=== PATIENT | male | born 1990 | race Two or more races ===

== ENCOUNTER 2020-02-16 09:43 | Inpatient (IN) | payer OTHER ==
[~2020-02-16] VITALS: Ht 172.7 cm; Wt 81.3 kg
[2020-02-16] MEDS ORDERED: ONDANSETRON 2MG/ML, 2ML ONE ×2 (10:07→14:20)
[2020-02-16] MEDS ORDERED: HYDROmorphone 1 MG/ML, 1ML INJ ONE (10:07)
[2020-02-16] MEDS ORDERED: SODIUM CHLORIDE FLUSH 10ML SYR IVF ONE (10:30)
[2020-02-16] MEDS ORDERED: HYDROmorphone 2 MG/ML, 1ML IVPush PRN (10:30)
[2020-02-16] MEDS ORDERED: ONDANSETRON 2MG/ML, 2ML IVPush ONE (10:30)
[2020-02-16 10:34] LABS: MEAN CORPUSCULAR HEMOGLOBIN 27.8 pg (27.5-34.5); MEAN CORPUSCULAR HGB CONC 33.4 g/dL (33.2-36.2); MEAN CORPUSCULAR VOLUME 83.2 fL (81-97); MEAN PLATELET VOLUME 8.4 fL (7.4-10.4); PLATELET COUNT 267 x10^3/uL (130-400); RED BLOOD COUNT 5.45 x10^6/uL (4.38-5.82); RED CELL DISTRIBUTION WIDTH 13.4 % (9.4-14.8)
[2020-02-16 10:45] LABS: ALBUMIN 4.1 g/dL (3.4-5.0); ANION GAP 10 mmol/L (5-15); CALCIUM 9.4 mg/dL (8.5-10.1); CHLORIDE 101 mmol/L (98-107)
[2020-02-16 10:49] LABS: ALANINE AMINOTRANSFERASE 39 U/L (12-78); ALKALINE PHOSPHATASE 71 U/L (45-117); TOTAL PROTEIN 8.6 g/dL (6.4-8.2)
[2020-02-16 10:52] LABS: MD YES
[2020-02-16 10:53] LABS: BAND#(MANUAL) 0.84 x10^3/uL; BANDS%(MANUAL) 4 % (0-7); SEGS% (MANUAL) 81 % (42-75)
[2020-02-16 10:54] LABS: <PLATELET ESTIMATE> ADEQUATE; <PLT MORPHOLOGY> NORMAL PLT MORPH; <RBC MORPHOLOGY> NORMAL; LYMPHS% (MANUAL) 9 % (22-44); MONOS#(MANUAL) 1.27 x10^3/uL (0.3-2.7); MONOS% (MANUAL) 6 % (2-9); SEG#(MANUAL) 17.09 x10^3/uL (1.8-6.8)
--- NOTE | 2020-02-16 10:58 | NUR ---
PT ERESTING IN [facility]. AMBULATED TO BATHROOM AND UNABLE TO PROVIDE URINE SAMPLE. SEE MAR FOR INTERVETIONS. PT REPORTS PAIN IMRPOVMENT TO A 4/10
[2020-02-16] MEDS ORDERED: CEFTRIAXONE PMX 2GM/50ML 0 ML ONE (11:46)
[2020-02-16] MEDS ORDERED: OMNIPAQUE 350 MG/ML, 100ML BOTTLE ONE (11:48)
--- NOTE | 2020-02-16 11:56 | NUR ---
PT TBADM. MD BEDSIDE TO DISCUSS PLAN OF CARE WITH PT.
[2020-02-16] MEDS ORDERED: CEFOTETAN PMX 2GM/50ML 50 ML IV ONE (12:00)
[2020-02-16] MEDS ORDERED: SODIUM CHLORIDE 0.9% 1,000ML IVBOLUS ONE (12:00)
[2020-02-16] MEDS ORDERED: FENTANYL PF 100 MCG/2ML ONE (12:51)
[2020-02-16] MEDS ORDERED: MIDAZOLAM 1 MG/ML, 2ML ONE (12:51)
[2020-02-16] MEDS ORDERED: BUPIVACAINE/PF-EPI 0.5% 1:200K ONE (13:09)
[2020-02-16] MEDS ORDERED: CHLORHEXIDINE 15 ML UDC ONE (13:13)
[2020-02-16] MEDS ORDERED: ACETAMINOPHEN 325 MG TABLET PO PRN (13:30)
[2020-02-16] MEDS ORDERED: MEPERIDINE/PF 25MG/0.5ML IVPush PRN (13:30)
[2020-02-16] MEDS ORDERED: OXYcodone 5 MG/5 ML ORAL.SOL UDC PO PRN (13:30)
[2020-02-16] MEDS ORDERED: HYDROmorphone 1 MG/ML, 1ML INJ IVPush PRN (13:30)
[2020-02-16] MEDS ORDERED: LORazepam 2 MG/ML, 1ML IVPush PRN (13:30)
[2020-02-16] MEDS ORDERED: hydrALAzine 20 MG/ML, 1ML IV PRN (13:30)
[2020-02-16] MEDS ORDERED: PROMETHAZINE 25 MG/ML, 1ML IVPush PRN (13:30)
[2020-02-16] MEDS ORDERED: FENTANYL PF 100 MCG/2ML IV PRN (13:30)
[2020-02-16] MEDS ORDERED: CHLORHEXIDINE 15 ML UDC MM ONE (13:30)
[2020-02-16] MEDS ORDERED: LABETALOL 5MG/ML, 20ML IV PRN (13:30)
[2020-02-16] MEDS ORDERED: ALBUTEROL SULFATE 2.5 MG/3 ML NPPB PRN (13:30)
[2020-02-16] MEDS ORDERED: SUGAMMADEX 200 MG/2 ML IVPush ONE (13:36)
[2020-02-16] MEDS ORDERED: KETOROLAC 30 MG/1 ML ONE (13:36)
[2020-02-16] MEDS ORDERED: BUPIVACAINE/PF-EPI 0.5% 1:200K INFIL ONE (13:48)
[2020-02-16] MEDS ORDERED: SODIUM CHLORIDE FLUSH 10ML SYR IVF PRN (14:00)
[2020-02-16] MEDS ORDERED: DEXAMETHASONE 4 MG/ML, 1ML ONE (14:20)
[2020-02-16] MEDS ORDERED: NEOSTIGMINE 1 MG/ML, 10ML ONE (14:20)
[2020-02-16] MEDS ORDERED: GLYCOPYRROLATE 0.2MG/1ML, 5ML ONE (14:20)
[2020-02-16] MEDS ORDERED: PROPOFOL 10 MG/ML, 20ML ONE (14:20)
[2020-02-16] MEDS ORDERED: LIDOCAINE-MPF 2% ,5ML ONE (14:20)
[2020-02-16] MEDS ORDERED: SUCCINYLCHOLINE 20 MG/ML, 10ML ONE (14:20)
[2020-02-16] MEDS ORDERED: ROCURONIUM 10MG/ML,5ML ONE (14:20)
[2020-02-16 15:56] VITALS: BP 119/81
[2020-02-16] MEDS ORDERED: ONDANSETRON 2MG/ML, 2ML IV PRN (16:30)
[2020-02-16] MEDS ORDERED: ONDANSETRON ODT 4 MG PO PRN (16:30)
[2020-02-16] MEDS ORDERED: HYDROmorphone 1 MG/ML, 1ML INJ IV PRN ×2 (16:30)
[2020-02-16] MEDS: PIPERACILLIN/TAZO/PMX 4.5GM 100 ML IV SCH ×2 (17:39→23:24)
[2020-02-16] MEDS: SODIUM CHLORIDE 0.9% 1,000 ML IV SCH (17:39)
[2020-02-16 20:05] VITALS: BP 118/84
[2020-02-16] MEDS: ACETAMINOPHEN 325 MG TABLET PO PRN (22:00)
[2020-02-16] MEDS: OXYcodone IR 5MG TABLET PO PRN (22:00)
[2020-02-17 00:02] VITALS: BP 113/72
[2020-02-17] MEDS: SODIUM CHLORIDE 0.9% 1,000 ML IV SCH ×4 (02:30→23:47)
[2020-02-17 04:19] VITALS: BP 119/75
[2020-02-17] MEDS: PIPERACILLIN/TAZO/PMX 4.5GM 100 ML IV SCH ×4 (05:15→23:48)
[2020-02-17] MEDS: OXYcodone IR 5MG TABLET PO PRN ×4 (05:25→23:48)
[2020-02-17] MEDS: ACETAMINOPHEN 325 MG TABLET PO PRN ×3 (05:25→16:40)
[2020-02-17 05:42] LABS: MEAN CORPUSCULAR HGB CONC 32.9 g/dL (33.2-36.2); MEAN CORPUSCULAR VOLUME 85.2 fL (81-97); MEAN PLATELET VOLUME 7.9 fL (7.4-10.4); PLATELET COUNT 218 x10^3/uL (130-400); RED BLOOD COUNT 5.24 x10^6/uL (4.38-5.82); RED CELL DISTRIBUTION WIDTH 13.7 % (9.4-14.8)
[2020-02-17 05:52] LABS: ANION GAP 8 mmol/L (5-15); CALCIUM 9.4 mg/dL (8.5-10.1); CHLORIDE 109 mmol/L (98-107)
[2020-02-17 05:55] LABS: CREATININE 1.24 mg/dL (0.7-1.3)
[2020-02-17 06:28] LABS: MD YES
[2020-02-17 06:30] LABS: <RBC MORPHOLOGY> NORMAL; BAND#(MANUAL) 3.03 x10^3/uL; BANDS%(MANUAL) 15 % (0-7); LYMPH#(MANUAL) 3.64 x10^3/uL (1-3.4); LYMPHS% (MANUAL) 18 % (22-44); MONOS#(MANUAL) 1.01 x10^3/uL (0.3-2.7); MONOS% (MANUAL) 5 % (2-9); SEG#(MANUAL) 12.52 x10^3/uL (1.8-6.8); SEGS% (MANUAL) 62 % (42-75)
[2020-02-17 06:31] LABS: <PLATELET ESTIMATE> ADEQUATE; <PLT MORPHOLOGY> NORMAL PLT MORPH
[2020-02-17 07:40] VITALS: BP 92/63
[2020-02-17 13:30] VITALS: BP 108/72
[2020-02-17 19:08] VITALS: BP 111/72
[2020-02-18 00:33] VITALS: BP 126/82
[2020-02-18] MEDS: OXYcodone IR 5MG TABLET PO PRN ×3 (05:54→18:29)
[2020-02-18] MEDS: ACETAMINOPHEN 325 MG TABLET PO PRN ×3 (05:54→18:29)
[2020-02-18] MEDS: PIPERACILLIN/TAZO/PMX 4.5GM 100 ML IV SCH ×4 (05:55→23:30)
[2020-02-18 06:14] LABS: CHLORIDE 111 mmol/L (98-107)
[2020-02-18 06:25] LABS: BASOPHILS # (AUTO) 0.04 x10^3/uL (0-0.1); BASOPHILS % (AUTO) 0 % (0-1); EOSINOPHILS % (AUTO) 0 % (1-7); LYMPHOCYTES # (AUTO) 2.25 x10^3/uL (1-3.4); LYMPHOCYTES % (AUTO) 17 % (22-44); MD NO; MEAN CORPUSCULAR HEMOGLOBIN 27.7 pg (27.5-34.5); MEAN CORPUSCULAR HGB CONC 32.8 g/dL (33.2-36.2); MEAN CORPUSCULAR VOLUME 84.5 fL (81-97); MEAN PLATELET VOLUME 8.2 fL (7.4-10.4); MONOCYTES # (AUTO) 0.56 x10^3/uL (0.2-0.8); MONOCYTES % (AUTO) 4 % (2-9); NEUTROPHILS # (AUTO) 10.23 x10^3/uL (1.8-6.8); NEUTROPHILS % (AUTO) 78 % (42-75); PLATELET COUNT 204 x10^3/uL (130-400); RED BLOOD COUNT 4.17 x10^6/uL (4.38-5.82); RED CELL DISTRIBUTION WIDTH 14.2 % (9.4-14.8)
[2020-02-18 06:29] LABS: ANION GAP 7 mmol/L (5-15); CALCIUM 7.8 mg/dL (8.5-10.1); CREATININE 1.07 mg/dL (0.7-1.3)
[2020-02-18 07:45] VITALS: BP 103/67
[2020-02-18] MEDS: SODIUM CHLORIDE 0.9% 1,000 ML IV SCH (08:30)
[2020-02-18] MEDS: SODIUM CHLORIDE FLUSH 3ML SYRINGE IVF SCH ×2 (09:21→21:00)
[2020-02-18] MEDS: ENOXAPARIN 30 MG/0.3 ML SQ SCH ×2 (09:21→21:06)
[2020-02-18 13:58] VITALS: BP 106/68
[2020-02-18 19:30] VITALS: BP 125/75
[2020-02-19 02:00] VITALS: BP 144/84
[2020-02-19] MEDS: PIPERACILLIN/TAZO/PMX 4.5GM 100 ML IV SCH ×4 (05:50→22:49)
[2020-02-19] MEDS: OXYcodone IR 5MG TABLET PO PRN ×4 (06:00→22:59)
[2020-02-19 06:48] LABS: MEAN CORPUSCULAR HEMOGLOBIN 27.1 pg (27.5-34.5); MEAN CORPUSCULAR HGB CONC 32.6 g/dL (33.2-36.2); MEAN PLATELET VOLUME 8.2 fL (7.4-10.4); PLATELET COUNT 267 x10^3/uL (130-400); RED BLOOD COUNT 4.39 x10^6/uL (4.38-5.82); RED CELL DISTRIBUTION WIDTH 13.6 % (9.4-14.8)
[2020-02-19 06:51] LABS: CALCIUM 8.5 mg/dL (8.5-10.1); CHLORIDE 107 mmol/L (98-107)
[2020-02-19 06:55] LABS: ANION GAP 9 mmol/L (5-15); CREATININE 0.98 mg/dL (0.7-1.3)
[2020-02-19 07:18] LABS: BASOPHILS # (AUTO) 0.04 x10^3/uL (0-0.1); BASOPHILS % (AUTO) 0 % (0-1); EOSINOPHILS # (AUTO) 0.03 x10^3/uL (0-0.4); EOSINOPHILS % (AUTO) 0 % (1-7); LYMPHOCYTES # (AUTO) 2.51 x10^3/uL (1-3.4); LYMPHOCYTES % (AUTO) 21 % (22-44); MD SCAN; MONOCYTES # (AUTO) 0.78 x10^3/uL (0.2-0.8); MONOCYTES % (AUTO) 7 % (2-9); NEUTROPHILS # (AUTO) 8.38 x10^3/uL (1.8-6.8); NEUTROPHILS % (AUTO) 71 % (42-75)
[2020-02-19 07:49] VITALS: BP 126/78
[2020-02-19] MEDS: SODIUM CHLORIDE FLUSH 3ML SYRINGE IVF SCH ×2 (09:00→21:00)
[2020-02-19] MEDS: ENOXAPARIN 30 MG/0.3 ML SQ SCH ×2 (09:25→22:49)
[2020-02-19 13:28] VITALS: BP 128/79
[2020-02-19 19:05] VITALS: BP 120/79
[2020-02-20 00:50] VITALS: BP 122/76
[2020-02-20] MEDS: PIPERACILLIN/TAZO/PMX 4.5GM 100 ML IV SCH ×2 (05:30→11:07)
[2020-02-20 07:40] VITALS: BP 119/74
[2020-02-20] MEDS: SODIUM CHLORIDE FLUSH 3ML SYRINGE IVF SCH (08:27)
[2020-02-20] MEDS: ENOXAPARIN 30 MG/0.3 ML SQ SCH (09:11)
[2020-02-20] MEDS: OXYcodone IR 5MG TABLET PO PRN ×2 (09:11→13:08)
[2020-02-20 09:25] LABS: MEAN CORPUSCULAR HEMOGLOBIN 27.6 pg (27.5-34.5); MEAN CORPUSCULAR VOLUME 83.7 fL (81-97); MEAN PLATELET VOLUME 7.3 fL (7.4-10.4); PLATELET COUNT 344 x10^3/uL (130-400); RED BLOOD COUNT 4.98 x10^6/uL (4.38-5.82); RED CELL DISTRIBUTION WIDTH 13.3 % (9.4-14.8)
[2020-02-20 09:27] LABS: BASOPHILS # (AUTO) 0.03 x10^3/uL (0-0.1); BASOPHILS % (AUTO) 0 % (0-1); EOSINOPHILS # (AUTO) 0.23 x10^3/uL (0-0.4); EOSINOPHILS % (AUTO) 2 % (1-7); LYMPHOCYTES # (AUTO) 2.28 x10^3/uL (1-3.4); LYMPHOCYTES % (AUTO) 21 % (22-44); MD NO; MONOCYTES # (AUTO) 0.89 x10^3/uL (0.2-0.8); MONOCYTES % (AUTO) 8 % (2-9); NEUTROPHILS # (AUTO) 7.23 x10^3/uL (1.8-6.8); NEUTROPHILS % (AUTO) 68 % (42-75)
[2020-02-20] MEDS: ACETAMINOPHEN 325 MG TABLET PO PRN (10:44)
[2020-02-20] MEDS ORDERED: OXYC5CAP2 PO (11:05)
[2020-02-20] MEDS ORDERED: AMOX1TAB61 PO (11:08)
== END 2020-02-20 13:34 | disposition home or self-care (01) | DRG 339 ==
LOC: ED 12:20 → EDIP 13:05 → 4NE 15:36 → DCLOUNGE 02-20 13:16
PROVIDERS: ADMIT Surgery; ATTEND Surgery
PROC: 0DTJ4ZZ Resection of Appendix, Percutaneous Endoscopic Approach (ICD-10-PCS; principal; 2020-02-16 15:00)
DX: K35.33 Acute appendicitis with perforation, localized peritonitis, and gangrene, with abscess (principal); B18.1 Chronic viral hepatitis B without delta-agent; B96.29 Other Escherichia coli [E. coli] as the cause of diseases classified elsewhere; Z20.828 Contact with and (suspected) exposure to other viral communicable diseases; F17.200 Nicotine dependence, unspecified, uncomplicated; Z82.49 Family history of ischemic heart disease and other diseases of the circulatory system
CPT/HCPCS: 36415; 96365; 96375; 99291; J3490; 74177; 80048; 80053; 82962; 83690; 85025; 87070; 87075; 87076; 87077; 87186; 87205; 87635; 88304; G0378; J1100; J1170; J1650; J1885; J2250; J2405; J2543; J2704; J2710; J3010; Q9967; J0330; J7030

== ENCOUNTER → 2020-03-03 | Outpatient (CLI) | payer OTHER ==
[~2020-03-03] MED LIST: AMOX1TAB61 PO; OXYC5CAP2 PO
[2020-03-03 11:08] LABS: BASOPHILS # (AUTO) 0.07 x10^3/uL (0-0.1); BASOPHILS % (AUTO) 1 % (0-1); EOSINOPHILS # (AUTO) 0.18 x10^3/uL (0-0.4); EOSINOPHILS % (AUTO) 2 % (1-7); LYMPHOCYTES # (AUTO) 3.91 x10^3/uL (1-3.4); LYMPHOCYTES % (AUTO) 35 % (22-44); MD NO; MEAN CORPUSCULAR HEMOGLOBIN 26.6 pg (27.5-34.5); MEAN CORPUSCULAR HGB CONC 32.1 g/dL (33.2-36.2); MEAN CORPUSCULAR VOLUME 82.9 fL (81-97); MEAN PLATELET VOLUME 7.5 fL (7.4-10.4); MONOCYTES # (AUTO) 0.75 x10^3/uL (0.2-0.8); MONOCYTES % (AUTO) 7 % (2-9); NEUTROPHILS # (AUTO) 6.22 x10^3/uL (1.8-6.8); NEUTROPHILS % (AUTO) 56 % (42-75); PLATELET COUNT 522 x10^3/uL (130-400); RED BLOOD COUNT 5.29 x10^6/uL (4.38-5.82); RED CELL DISTRIBUTION WIDTH 12.8 % (9.4-14.8)
== END | disposition home or self-care (01) ==
LOC: LAB 10:49
PROVIDERS: ATTEND Surgery
DX: K91.5 Postcholecystectomy syndrome (principal)
CPT/HCPCS: 36415; 85025; 86140